=== PATIENT | female | born 1985 | race Asian ===

== ENCOUNTER 2018-03-29 01:01 | Inpatient (IN) | payer SELFPAY ==
[~2018-03-29] VITALS: Ht 158 cm; Wt 58.7 kg
[2018-03-29] MEDS ORDERED: OXYTOCIN 20 UNITS in LACTATED RINGERS 1,000 ML IV SCH (02:36)
[2018-03-29] MEDS ORDERED: CARBOPROST 250 MCG/ML AMP IM PRN (02:40)
[2018-03-29] MEDS ORDERED: NALBUPHINE 10 MG/ML AMP IVP PRN (02:40)
[2018-03-29] MEDS ORDERED: METHYLERGONOVINE 0.2 MG/ML AMP IM PRN ×2 (02:40→18:30)
[2018-03-29] MEDS ORDERED: PROMETHAZINE 25 MG/ML VIAL IVP PRN (02:40)
[2018-03-29 03:04] LABS: APPEARANCE,URINE CLEAR (CLEAR); BILIRUBIN,URINE NEGATIVE (NEGATIVE); BLOOD, URINE TRACE-I (NEGATIVE); COLOR,URINE YELLOW (YELLOW); LEUKOCYTE ESTERASE ,URINE NEGATIVE (NEGATIVE); NITRITE, URINE NEGATIVE (NEGATIVE); UGLUCOSE NEGATIVE (NEGATIVE)
[2018-03-29 03:20] VITALS: BP 122/61
[2018-03-29 03:21] LABS: ALBUMIN 2.7 g/dL (3.4-5.0); CARBON DIOXIDE 22.2 mmol/L (21-32); CREATININE 0.6 mg/dL (0.6-1.3); POTASSIUM 3.2 mmol/L (3.5-5.1); TOTAL BILIRUBIN 0.2 mg/dL (0.0-1.0)
[2018-03-29 03:24] LABS: BASOPHILS % (AUTO) 0.4 % (0.0-2.0); EOSINOPHILS # (AUTO) 0.1 K/uL (0-0.4); EOSINOPHILS % (AUTO) 0.9 % (0.0-4.0); HEMATOCRIT 33.1 % (36-48); HEMOGLOBIN 11.4 g/dL (12.0-16.0); LYMPHOCYTES # (AUTO) 1.4 K/uL (2.5-16.5); LYMPHOCYTES % (AUTO) 17.9 % (20.5-51.1); MEAN CORPUSCULAR HEMOGLOBIN 32 pg (27-31); MEAN CORPUSCULAR HGB CONC 35 g/dL (33-37); MEAN CORPUSCULAR VOLUME 92.9 fL (80-94); MONOCYTES # (AUTO) 0.5 K/uL (0.8-1.0); MONOCYTES % (AUTO) 6.3 % (1.7-9.3); NEUTROPHILS # (AUTO) 5.7 K/uL (1.8-7.7); NEUTROPHILS % (AUTO) 74.5 % (42.2-75.2); PLATELET COUNT (AUTO) 123 K/uL (140-450); RED BLOOD CELL COUNT(AUTO) 3.56 MIL/uL (4.20-5.40); RED CELL DISTRIBUTION WIDTH 14.1 % (11.6-13.7); WHITE BLOOD COUNT (AUTO) 7.6 K/uL (4.8-10.8)
[2018-03-29] MEDS ORDERED: OXYTOCIN 10 UNITS/ML VIAL IM ONE (03:30)
[2018-03-29] MEDS ORDERED: AMPICILLIN 2,000 MG in NACL 0.9% 100 ML IV SCH (03:30)
[2018-03-29] MEDS ORDERED: AMPICILLIN 2,000 MG VIAL ONE (03:37)
[2018-03-29 03:44] LABS: CALCIUM OXALATE CRYSTALS,UR 30-50 /HPF (None Seen); RBC,URINE 11-20 (MOD) /HPF (0-5); WBC,URINE 0-5 (RARE) /HPF (0-5)
[2018-03-29] MEDS: LACTATED RINGERS 1,000 ML IV SCH ×2 (04:14→15:58)
[2018-03-29] MEDS ORDERED: AMPICILLIN 1,000 MG in NACL 0.9% 50 ML IV SCH (08:00)
[2018-03-29] MEDS ORDERED: MISOPROSTOL 25 MCG TAB ONE (08:18)
--- NOTE | 2018-03-29 08:40 | NUR ---
PATIENT HAS BEEN SCREENED AND CATEGORIZED LOW NUTRITION RISK. PATIENT WILL BE SEEN WITHIN 7 DAYS OF ADMISSION. 04/04/[address]
[2018-03-29] MEDS ORDERED: ROPIVACAINE 0.2%/NS PREMIX 250 ML EPI ONE (09:48)
[2018-03-29] MEDS ORDERED: ROPIVACAINE 0.2%/NS PREMIX 250 ML EPI SCH (10:10)
[2018-03-29] MEDS ORDERED: AMPICILLIN 1,000 MG VIAL ONE (11:46)
[2018-03-29] MEDS ORDERED: OXYTOCIN 10 UNITS/ML VIAL ONE (17:12)
[2018-03-29] MEDS ORDERED: METHYLERGONOVINE 0.2 MG/ML AMP ONE (17:37)
[2018-03-29] MEDS ORDERED: BENZOCAINE/MENTHOL 20%-0.5% 60 GM CAN TP PRN (18:30)
[2018-03-29] MEDS ORDERED: oxyCODONE/APAP 5/325 MG 1 TAB TAB PO PRN (18:30)
[2018-03-29] MEDS ORDERED: OXYTOCIN 10 UNITS/ML VIAL IM PRN (18:30)
[2018-03-29] MEDS ORDERED: oxyCODONE/APAP 5/325 MG 1 TAB TAB ONE (18:39)
[2018-03-29] MEDS ORDERED: CARBOPROST 250 MCG/ML AMP IM ONE (18:58)
[2018-03-29] MEDS ORDERED: TEMAZEPAM 15 MG CAP PO PRN (19:00)
[2018-03-29] MEDS ORDERED: MISOPROSTOL 200 MCG TAB ONE (19:02)
[2018-03-29] MEDS ORDERED: OXYTOCIN 20 UNITS/LR PREMIX 1,000 ML IV ONE ×2 (19:10→20:50)
[2018-03-29] MEDS ORDERED: NALBUPHINE 10 MG/ML AMP ONE (19:10)
[2018-03-29] MEDS ORDERED: DOCUSATE SOD/SENNA 50/8.6 MG 1 TAB PO SCH (21:00)
[2018-03-29] MEDS: HYDROcodone/APAP 5/325 MG 1 TAB TAB PO PRN (22:54)
[2018-03-30] MEDS: HYDROcodone/APAP 5/325 MG 1 TAB TAB PO PRN ×4 (03:38→22:05)
[2018-03-30 09:02] LABS: HEMATOCRIT 26.6 % (36-48); HEMOGLOBIN 8.9 g/dL (12.0-16.0)
[2018-03-30 09:06] LABS: HEPATITIS B SURFACE ANTIBODY Reactive (.)
[2018-03-30] MEDS: FERROUS SULFATE 325 MG TABEC PO SCH ×2 (13:02→18:10)
[2018-03-30] MEDS ORDERED: IBUPROFEN 800 MG TAB PO PRN (18:30)
[2018-03-30] MEDS ORDERED: MEASLES, MUMPS, AND RUBELLA 1 VIAL SQVAC PRN (21:10)
[2018-03-31] MEDS: FERROUS SULFATE 325 MG TABEC PO SCH (08:37)
== END 2018-03-31 14:00 | disposition home or self-care (01) | DRG 775 ==
LOC: MLD 01:01 → MFCC 22:18
PROVIDERS: ADMIT Obstetrics & Gynecology; ATTEND Obstetrics & Gynecology
PROC: 10E0XZZ Delivery of Products of Conception, External Approach (ICD-10-PCS; principal; 2018-03-29)
PROC: 0KQM0ZZ Repair Perineum Muscle, Open Approach (ICD-10-PCS; 2018-03-29)
PROC: 3E0P7VZ Introduction of Hormone into Female Reproductive, Via Natural or Artificial Opening (ICD-10-PCS; 2018-03-29)
PROC: 3E0R3BZ Introduction of Anesthetic Agent into Spinal Canal, Percutaneous Approach (ICD-10-PCS; 2018-03-29)
PROC: 00HU33Z Insertion of Infusion Device into Spinal Canal, Percutaneous Approach (ICD-10-PCS; 2018-03-29)
PROC: 3E0234Z Introduction of Serum, Toxoid and Vaccine into Muscle, Percutaneous Approach (ICD-10-PCS; 2018-03-30)
PROC: 3E0134Z Introduction of Serum, Toxoid and Vaccine into Subcutaneous Tissue, Percutaneous Approach (ICD-10-PCS; 2018-03-30)
DX: O69.1XX0 Labor and delivery complicated by cord around neck, with compression, not applicable or unspecified (principal); O70.1 Second degree perineal laceration during delivery; Z37.0 Single live birth; Z3A.40 40 weeks gestation of pregnancy; Z23 Encounter for immunization
CPT/HCPCS: 36415; 59200; 80053; 81001; 85018; 85025; 86592; 86706; 86762; 86886; 86900; 86901; 87653-90; 90707; 90715; C1758; J0290; J2210; J2300; J2590; J2795; J3490; J7120